=== PATIENT | female | born 1960 | race Caucasian/White ===

== ENCOUNTER 2018-12-29 17:30 | Emergency (ER) | payer SELFPAY ==
[~2018-12-29] VITALS: Wt 90.9 kg
[2018-12-29] MEDS ORDERED: IBUPROFEN 600 MG TAB PO ONE (19:30)
[2018-12-29] MEDS ORDERED: HYDROCODONE/APAP (5/325) TAB PO ONE (19:30)
[2018-12-29] MEDS ORDERED: HYDR-4011 PO (20:32)
[2018-12-29] MEDS ORDERED: IBUP-1542 PO (20:32)
--- NOTE | 2018-12-29 20:36 | ERD ---
ER Documentation [facility] R upper [facility]. hx anxiety. +distal pulses HPI 58-year-old female presents after mechanical fall today on her right upper extremity. She has pain in her right humerus area. She has restricted range of motion of the upper portion of her arm due to pain but no restricted range of motion of the elbow, wrist, digits. She denies head injury, neck injury, additional complaints. ROS All systems reviewed and are negative except as per history of present illness. Medications Home Meds Active Scripts Ibuprofen* (Motrin*) 600 Mg Tab, 600 MG PO Q6, #15 TAB Prov:WILLI BARRETT MD 12/29/18 Hydrocodone/Acetaminophen (Laurel 5-325 Tablet) 1 Each Tablet, 1 TAB PO Q6H PRN for PAIN, #14 TAB Prov:WILLI BARRETT MD 12/29/18 PMhx/Soc Medical and Surgical Hx: pt denies Surgical Hx History of Surgery: No Anesthesia Reaction: No Hx Neurological Disorder: No Hx Respiratory Disorders: No Hx Cardiac Disorders: Yes (HTN) Hx Psychiatric Problems: No Hx Miscellaneous Medical Probl: No Hx Alcohol Use: No Hx Substance Use: No Hx Tobacco Use: No Smoking Status: Never smoker Physical Exam Vitals Vital Signs Date Temp Pulse Resp B/P (MAP) Pulse Ox O2 O2 Flow FiO2 Time Delivery Rate 12/29/18 98.5 93 18 157/84 94 Room Air 21:03 (108) 12/29/18 99.8 95 28 185/96 96 17:43 (125) Physical Exam Const: No acute distress Head: Atraumatic Eyes: Normal Conjunctiva ENT: Normal External Ears, Nose and Mouth. Neck: Full range of motion. No meningismus. Resp: Clear to auscultation bilaterally Cardio: Regular rate and rhythm, no murmurs Abd: Soft, non tender, non distended. Normal bowel sounds Skin: No petechiae or rashes Back: No midline or flank tenderness Ext: No cyanosis, or edema. Tenderness and swelling around the right mid humerus area. No shoulder, clavicle, elbow or wrist tenderness. Pulses 2+ distally. No deficits appreciated. Neur: Awake and alert Psych: Normal Mood and Affect Results 24 hrs Current Medications Medications Dose Sig/Marleny Start Time Status Last (Trade) Ordered Route PRN Stop Time Admin Dose Reason Admin 1 tab ONCE ONCE 12/29/18 DC 12/29/18 Acetaminophen PO 19:30 12/29/18 19:11 / 19:31 Hydrocodone Bitart (Laurel (5/325)) Ibuprofen 600 mg ONCE ONCE 12/29/18 DC 12/29/18 (Motrin) PO 19:30 12/29/18 19:11 19:31 Procedures/MDM X-ray right humerus 2V Interpreted by me: Bones: Minimally displaced right midshaft humerus fracture Joints: No dislocation Foreign body: None Impression-minimally displaced right midshaft clavicle fracture. Case was discussed with orthopedist vision teacher Dr. Holden who was able to review the images remotely. He recommended shoulder immobilizer and outpatient follow-up. Patient presents with midshaft numerous fracture which is closed without findings of ischemia, deficits, neurovascular compromise. She will be discharged home after placement of a right shoulder immobilizer. She is neurovascular intact after immobilizer. She was advised to see orthopedist this week return to ER for fevers, new or worsening symptoms. Will give a short course of Laurel for pain. She is advised on importance of sleeping upright to avoid further injury of the upper extremity. Departure Diagnosis: Primary Impression: Fracture, humerus Encounter type: initial encounter Humerus Location: shaft Fracture type: closed Fracture morphology: other fracture Laterality: right Qualified Codes: S42.391A - Other fracture of shaft of right humerus, initial encounter for closed fracture Condition: Stable Patient Instructions: Fracture, Upper Extremity Referrals: JULIANA HOLDEN MD Additional Instructions: See orthopedist this week as discussed. Recommend sleep in sitting position. Recheck for fevers, weakness, new worsening symptoms otherwise. WILLI BARRETT MD Dec 29, 2018 20:35
[2018-12-29 21:03] VITALS: BP 157/84; PULSE 93; RESP 18
== END 2018-12-29 21:06 | disposition home or self-care (01) ==
LOC: FTE 17:30
DX: S42.391A Other fracture of shaft of right humerus, initial encounter for closed fracture (principal); I10 Essential (primary) hypertension; W18.39XA Other fall on same level, initial encounter; Y92.9 Unspecified place or not applicable